=== PATIENT | female | born 1995 | race Caucasian/White ===

== ENCOUNTER 2018-11-03 20:09 | Emergency (ER) | payer MEDICAID ==
[~2018-11-03] VITALS: Ht 167.6 cm; Wt 102.5 kg
[2018-11-03 20:28] VITALS: Ht 167.6 cm; Wt 102.5 kg
[2018-11-03 22:35] VITALS: BP 109/78
== END 2018-11-03 22:35 | disposition home or self-care (01) ==
LOC: ED 20:09
DX: R11.2 Nausea with vomiting, unspecified (principal); R07.0 Pain in throat; R05 Cough

== ENCOUNTER 2018-12-02 19:49 | Emergency (ER) | payer MEDICAID ==
[~2018-12-02] VITALS: Ht 167.6 cm; Wt 103.0 kg
[2018-12-02 20:00] VITALS: Ht 167.6 cm; Wt 103.0 kg
[2018-12-02 20:50] VITALS: BP 129/84
== END 2018-12-02 20:51 | disposition home or self-care (01) ==
LOC: ED 19:49
DX: G44.209 Tension-type headache, unspecified, not intractable (principal); F41.9 Anxiety disorder, unspecified; J45.909 Unspecified asthma, uncomplicated

== ENCOUNTER 2018-12-28 23:26 | Emergency (ER) | payer MEDICAID ==
[~2018-12-28] VITALS: Ht 167.6 cm; Wt 102.1 kg
[2018-12-28 23:30] VITALS: Ht 167.6 cm; Wt 102.1 kg
[2018-12-29 00:05] VITALS: BP 122/75
== END 2018-12-29 00:05 | disposition home or self-care (01) ==
LOC: ED 23:26
DX: T63.481A Toxic effect of venom of other arthropod, accidental (unintentional), initial encounter (principal); L29.9 Pruritus, unspecified; F41.9 Anxiety disorder, unspecified; Y92.89 Other specified places as the place of occurrence of the external cause

== ENCOUNTER 2019-01-04 11:38 | Emergency (ER) | payer MEDICAID ==
[~2019-01-04] VITALS: Ht 167.6 cm; Wt 100.7 kg
[2019-01-04 11:50] VITALS: BP 124/69; Ht 167.6 cm; Wt 100.7 kg
== END 2019-01-04 13:45 | disposition home or self-care (01) ==
LOC: ED 11:38
DX: L03.211 Cellulitis of face (principal); F41.9 Anxiety disorder, unspecified; J45.909 Unspecified asthma, uncomplicated
CPT/HCPCS: J0696

== ENCOUNTER 2019-01-14 01:35 | Emergency (ER) | payer MEDICAID ==
[~2019-01-14] VITALS: Ht 152.4 cm; Wt 103.0 kg
[2019-01-14 01:40] VITALS: Ht 152.4 cm; Wt 103.0 kg
[2019-01-14 03:31] VITALS: BP 112/73
== END 2019-01-14 03:31 | disposition home or self-care (01) ==
LOC: ED 01:35
DX: R07.89 Other chest pain (principal); F41.9 Anxiety disorder, unspecified; H60.12 Cellulitis of left external ear; J45.909 Unspecified asthma, uncomplicated

== ENCOUNTER 2019-01-14 12:02 | Emergency (ER) | payer MEDICAID ==
[~2019-01-14] VITALS: Ht 170.2 cm; Wt 101.2 kg
[2019-01-14 12:12] VITALS: Ht 170.2 cm; Wt 101.2 kg
[2019-01-14 12:51] LABS: BASOPHIL % 0.2 % (0-2); PLATELET COUNT 236 x10^3mcL (130-400); RED CELL DISTRIBUTION WIDTH 13.7 % (11.5-14.5)
[2019-01-14 13:01] LABS: CALCIUM 8.9 mg/dL (8.5-10.1); CARBON DIOXIDE 24.4 mmol/L (21-32); CHLORIDE SERUM 108 mmol/L (98-107); CREATININE SERUM 0.6 mg/dL (0.6-1.0); GFR1 > 60 mL/min; GLUCOSE SERUM 90 mg/dL (74-106); POTASSIUM SERUM 3.8 mmol/L (3.5-5.1); SODIUM SERUM 142 mmol/L (136-145)
[2019-01-14 13:05] LABS: ALBUMIN 3.9 g/dL (3.4-5.0); ALKALINE PHOSPHATASE 54 U/L (46-116); ALT/SGPT 25 U/L (14-59); AST/SGOT 15 U/L (15-37); BILIRUBIN TOTAL 0.5 mg/dL (0.20-1.00); TOTAL PROTEIN, SERUM 7.4 g/dL (6.4-8.2)
[2019-01-14 14:19] VITALS: BP 106/68
== END 2019-01-14 14:20 | disposition home or self-care (01) ==
LOC: ED 12:02
PROVIDERS: Emergency Medicine
DX: R07.89 Other chest pain (principal); R20.2 Paresthesia of skin; F41.9 Anxiety disorder, unspecified
CPT/HCPCS: 36415; Q0092

== ENCOUNTER 2019-01-22 19:07 | Emergency (ER) | payer MEDICAID ==
[~2019-01-22] VITALS: Ht 167.6 cm; Wt 104.3 kg
[2019-01-22 20:22] VITALS: BP 114/69
== END 2019-01-22 20:22 | disposition home or self-care (01) ==
LOC: ED 19:07
DX: H60.12 Cellulitis of left external ear (principal); J45.909 Unspecified asthma, uncomplicated; F41.9 Anxiety disorder, unspecified

== ENCOUNTER 2019-02-03 13:47 | Emergency (ER) | payer MEDICAID ==
[~2019-02-03] VITALS: Ht 170.2 cm; Wt 102.1 kg
[2019-02-03 14:04] VITALS: Ht 170.2 cm; Wt 102.1 kg
[2019-02-03 16:20] VITALS: BP 117/75
== END 2019-02-03 16:20 | disposition home or self-care (01) ==
LOC: ED 13:47
DX: H60.12 Cellulitis of left external ear (principal); J45.909 Unspecified asthma, uncomplicated; F41.9 Anxiety disorder, unspecified